=== PATIENT | male | born 2000 | race Caucasian/White ===

== ENCOUNTER → 2020-04-16 12:28 | Outpatient (BNVA) | payer BC, SELFPAY | PROVIDERS: Family Provider General Practice; Visit Provider Nurse Practitioner | DX: Z11.59 Encounter for screening for other viral diseases (principal) | CPT/HCPCS: 87635 ==

== ENCOUNTER → 2022-04-23 16:23 | Outpatient (BNVA) | payer BC, SELFPAY | PROVIDERS: Family Provider General Practice; PCP Family Medicine; Visit Provider Family Medicine | DX: Z20.822 Contact with and (suspected) exposure to COVID-19 (principal); B34.9 Viral infection, unspecified | CPT/HCPCS: 87426; 87635 ==

== ENCOUNTER → 2022-07-23 10:02 | Outpatient (BNVA) | payer BC, SELFPAY | PROVIDERS: Family Provider General Practice; PCP Family Medicine; Visit Provider Family Medicine | DX: Z00.00 Encounter for general adult medical examination without abnormal findings (principal); F32.A Depression, unspecified; R68.82 Decreased libido | CPT/HCPCS: 80053; 80061; 84443 ==

== ENCOUNTER → 2022-09-17 13:51 | Outpatient (BNVA) | payer BC, SELFPAY | PROVIDERS: Family Provider General Practice; PCP Family Medicine; Visit Provider Clinical Nurse Specialist Adult Health | DX: B34.9 Viral infection, unspecified (principal) | CPT/HCPCS: 87400; 87426 ==

== ENCOUNTER → 2022-11-12 08:10 | Outpatient (BNVA) | payer BC, SELFPAY | PROVIDERS: Family Provider General Practice; PCP Family Medicine; Visit Provider Family Medicine | DX: Z00.00 Encounter for general adult medical examination without abnormal findings (principal); F32.A Depression, unspecified; B34.9 Viral infection, unspecified | CPT/HCPCS: 80053; 80061; 83036 ==

== ENCOUNTER → 2022-12-22 14:36 | Outpatient (BNVA) | payer BC, SELFPAY | PROVIDERS: Family Provider General Practice; PCP Family Medicine; Visit Provider Clinical Nurse Specialist Adult Health | DX: B34.9 Viral infection, unspecified (principal); Z20.822 Contact with and (suspected) exposure to COVID-19 | CPT/HCPCS: 87400; 87420; 87426; 87880 ==

== ENCOUNTER → 2023-06-29 12:25 | Outpatient (BNVA) | payer BC, SELFPAY | PROVIDERS: Family Provider General Practice; PCP Family Medicine; Visit Provider Family Medicine | DX: I88.9 Nonspecific lymphadenitis, unspecified (principal) | CPT/HCPCS: 85025 ==

== ENCOUNTER 2025-04-17 12:52 | Outpatient (CLI) | payer BC, SELFPAY | END 2025-04-17 12:53 | disposition home or self-care (01) | LOC: SLEEP 12:56 | PROVIDERS: Family Provider General Practice; PCP Family Medicine; Referring Provider Family Medicine; Visit Provider Internal Medicine Pulmonary Disease | DX: G47.33 Obstructive sleep apnea (adult) (pediatric) (principal); G47.36 Sleep related hypoventilation in conditions classified elsewhere | CPT/HCPCS: G0399 ==